=== PATIENT | female | born 1955 | race African-American/Black ===

== ENCOUNTER 2017-07-25 13:24 | Emergency (ER) | payer MEDICARE, OTHER ==
[~2017-07-25] VITALS: Ht 160 cm; Wt 77.0 kg
[2017-07-25 15:24] VITALS: BP 114/70
== END 2017-07-25 15:25 | disposition home or self-care (01) ==
LOC: ER 14:42
DX: M25.552 Pain in left hip (principal); M25.532 Pain in left wrist; I10 Essential (primary) hypertension; M06.9 Rheumatoid arthritis, unspecified; W01.0XXA Fall on same level from slipping, tripping and stumbling without subsequent striking against object, initial encounter; Y92.89 Other specified places as the place of occurrence of the external cause; Y99.8 Other external cause status; Y93.E1 Activity, personal bathing and showering
CPT/HCPCS: 99281